=== PATIENT | female | born 1980 ===

== ENCOUNTER 2018-09-30 05:29 | Inpatient (IN) | payer MEDICAID, OTHER ==
[2018-09-30] MEDS ORDERED: XYLOCAINE 2% INFILTRATI ONE (06:01)
[2018-09-30] MEDS ORDERED: BRETHINE SUB-Q PRN (06:01)
[2018-09-30] MEDS ORDERED: SUBLIMAZE IV PRN (06:01)
--- NOTE | 2018-09-30 06:13 | History and Physical Report ---
History of Present Illness Date of examination: 09/30/18 Date of admission: 09/30/2018 Chief complaint: Contractions History of present illness: 38 year old presents to L&D in active labor. Patient denies leaking of fluid or vaginal bleeding. Patient received care at [facility] and records are available. LMP 12/26/17. EDC 10/02/18. significant for the following: grand multipara, advanced maternal age, + AFP (increased risk for Down Syndrome) with normal cf DNA, elevated 1 hour sugar test with normal 3 hour OGTT. labs are as follows: O+, antibody screen negative, rubella immune, HIV negative, RPR nonreactive, hepatitis B surface antigen negative, chlamydia negative, gonorrhea negative, quad screen posititive, cf DNA low risk, 1 hour sugar test 168 (normal 3 hr. OGTT), GBS negative. 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 denies: chlamydia, gonorrhea, hepatitis B, hepatitis C, HIV, syphilis, trichomonas Family/Genetic History: diabetes, hypertension Social history: , lives with family, full code. denies: smoking, alcohol abuse, prescription drug abuse, IV drug use - Obstetrical History Expected Date of Delivery: 10/02/18 Actual Gestation: 39 Week(s) 5 Day(s) : 6 Para: 5 Hx # Term Pregnancies: 5 Number of Pregnancies: 0 Spontaneous Abortions: 0 Induced : 0 Number of Living Children: 5 Medications and Allergies Allergies Allergy/AdvReac Type Severity Reaction Status Date / Time No Known Allergies Allergy Verified 09/30/18 06:40 Active Meds: Active Medications Ephedrine Sulfate (Ephedrine Sulfate) 10 mg IV Q2M PRN PRN Reason: Hypotension Oxytocin/Sodium Chloride (Pitocin/Ns 20 Unit/1000ml Drip) 20 units in 1,000 mls @ 125 mls/hr IV DIRECT MARIBELL Review of Systems All systems: negative (contractions) - Vital Signs Vital signs: Vital Signs Pulse BP 85 134/80 09/30/18 05:45 09/30/18 05:45 Temp Pulse Resp BP Pulse Ox 85 134/80 09/30/18 05:45 09/30/18 05:45 - Physical Exam Abdomen: Positive: normal appearance, soft. Negative: distention, tenderness, guarding, rigidity Genitourinary (Female): Positive: normal external genitalia, normal perenium. Negative: perineal/vulvar lesions (no vesicular lesions; small genital warts noted) Vagina: Positive: normal moisture Uterus: Positive: enlarged. Negative: tender Anus/Rectum: Positive: normal perianal skin Extremities: Positive: normal. Negative: tenderness - Obstetrical FHR: category 1 Uterine Contraction Monitor Mode: External Cervical Dilatation: 7 Cervical Effacement Percentage: 100 station: -2 Uterine Contraction Pattern: Regular Uterine Contraction Intensity: Moderate Results Result Diagrams: 09/30/18 06:00 All other labs normal. Assessment and Plan A: at 39 weeks, 5 days gestation. Active labor. GBS negative. Grand multipara. P: Admit. Continuous EFM. Anticipate vaginal .
[2018-09-30 06:47] LABS: Hematocrit 39.8 % (30.3-42.9); Hemoglobin 13.4 gm/dl (10.1-14.3); Mean Corpuscular HGB Conc 34 % (30-34); Mean Corpuscular Volume 92 fl (79-97); Platelet Count 230 K/mm3 (140-440); Red Blood Count 4.33 M/mm3 (3.65-5.03); Red Cell Distribution Width 13.5 % (13.2-15.2)
[2018-09-30] MEDS ORDERED: LACTATED RINGERS 1,000 ML IV SCH (07:00)
[2018-09-30] MEDS ORDERED: MARCAINE 0.25% INFILTRATI ONE (07:21)
[2018-09-30] MEDS ORDERED: NARCAN 2 MG/2 ML IV PRN (07:39)
--- NOTE | 2018-09-30 07:39 | Anesthesia Consultation ---
Anesthesia Consult and Med Hx Date of service: 09/30/18 - Airway Anesthetic Teeth Evaluation: Good ROM Head & Neck: Adequate Mental/Hyoid Distance: Adequate Mallampati Class: Class II Intubation Access Assessment: Good - Pulmonary Exam CTA: Yes - Cardiac Exam Cardiac Exam: RRR - Pre-Operative Health Status ASA Pre-Surgery Classification: ASA2 Proposed Anesthetic Plan: Epidural - Pulmonary Hx Asthma: No COPD: No Hx Pneumonia: No - Endocrine Hx End Stage Renal Disease: No - Hematic Hx Anemia: No - Other Systems Hx Alcohol Use: No
[2018-09-30] MEDS ORDERED: fentaNYL-BUPIV 2 MCG/ML-0.125% 200 MCG/100 ML BAG EPIDURAL SCH (08:00)
[2018-09-30] MEDS ORDERED: PITOCIN IV ONE (08:43)
[2018-09-30] MEDS ORDERED: NS IV ONE (08:43)
[2018-09-30] MEDS ORDERED: PITOCin/NS 30 UNIT/500ML 30 UNITS/500 ML BAG IV SCH (09:00)
[2018-09-30] MEDS: PITOCin/NS 20 UNIT/1000ML DRIP 20 UNITS/1,000 ML BAG IV SCH ×2 (10:20→11:26)
[2018-09-30] MEDS ORDERED: TUCKS PAD TP PRN (10:30)
[2018-09-30] MEDS ORDERED: NORCO 5/325 PO PRN (10:30)
[2018-09-30] MEDS ORDERED: LANSINOH TP PRN (10:30)
[2018-09-30] MEDS ORDERED: DULCOLAX PR PRN (10:30)
[2018-09-30] MEDS ORDERED: BENADRYL PO PRN (10:30)
--- NOTE | 2018-09-30 10:37 | Procedure Note ---
OB Delivery Note - Delivery Date of Delivery: 09/30/18 Surgeon: CIRO MENON Estimated blood loss: 200cc - Vaginal Delivery presentation: vertex Delivery position: OA Intrapartum events: shoulder dystocia Delivery induction: none Delivery monitor: external FHT, external uterine Route of delivery: Delivery placenta: spontaneous Delivery cord: 3 umbilical vessels Episiotomy: none Delivery laceration: none Anesthesia: epidural Delivery comments: Spontaneous vaginal delivery at 10:16 of liveborn female infant weighing 8 lb. 7 oz. over intact perineum with apgars of 7/9. Left anterior shoulder dystocia, resolved with Roxana maneuver, repositioning of shoulders, and good suprapubic pressure. Posterior shoulder was delivered first. Shoulder cord, reduced as baby's body delivered. Thin meconium amniotic fluid. 3 vessel cord double clamped and cut and baby taken immediately to radiant warmer at where NICU team was present for suctioning. Spontaneous cry and respirations. Cord blood obtained. Spontaneous delivery of intact placenta and membranes. EBL 200 cc. Pitocin to IV fluids after delivery of placenta. Fundus firm and midline. Vaginal sweep negative. No lacerations noted. Mother and baby stable in birthing room. Baby moving all extremities well.
[2018-09-30] MEDS ORDERED: SODIUM CHLORIDE FLUSH SYRINGE 10 ML IV NR (11:00)
--- NOTE | 2018-09-30 11:10 | Post Anesthesia Evaluation ---
- Post Anesthesia Evaluation Patient Participated: Yes Airway Patent: Yes Stable Respiratory Function: Yes Nausea/Vomiting: No Temp > 96.8F: Yes Pain Manageable: Yes Adequeate Hydration: Yes Anesthesia Complications: No Block Receding Appropriately: Yes Patient on Ventilator: No
[2018-09-30] MEDS: IBUPROFEN PO SCH ×2 (12:44→17:30)
[2018-09-30] MEDS ORDERED: MILK OF MAGNESIA PO PRN (22:00)
[2018-09-30 23:35] LABS: Hematocrit 35.4 % (30.3-42.9)
[2018-10-01] MEDS: IBUPROFEN PO SCH ×4 (00:30→20:41)
--- NOTE | 2018-10-01 11:09 | Progress Note ---
Assessment and Plan A: day 1 S/P spontaneous vaginal delivery. P: Continue current management. Encouraged patient to ambulate. Subjective - Subjective Date of service: 10/01/18 Principal diagnosis: day 1 S/P spontaneous vaginal delivery Interval history: day 1 S/P spontaneous vaginal delivery. Doing well. Patient reports small amount of lochia. Voiding without difficulty, ambulating well, passing gas, tolerating a regular diet without nausea or vomiting. Patient denies headache, chest pain, cough, shortness of breath, abdominal pain, or heavy vaginal bleeding. Patient reports: appetite normal, voiding normally, pain well controlled, flatus, ambulating normally, no dizzy ambulation, no nauseated : doing well Objective - Vital Signs Latest vital signs: Vital Signs Temp Pulse Resp BP BP Pulse Ox 10/01/18 08:19 98.0 F 76 20 113/70 99 10/01/18 00:11 98.3 F 80 16 111/60 97 09/30/18 21:30 97.8 F 75 18 117/71 09/30/18 21:21 20 09/30/18 16:47 97.6 F 79 18 104/59 09/30/18 12:19 98.4 F 87 18 132/75 99 09/30/18 11:55 64 130/66 09/30/18 11:25 86 115/64 09/30/18 11:10 96 H 112/77 Intake and Output 09/30/18 10/01/18 10/01/18 23:59 07:59 15:59 Intake Total 720 120 Output Total 250 Balance 720 -130 Intake: Oral 360 Intake, Free Water 360 120 Output: Urine 250 Void 250 Other: Total, Intake Amount 360 Total, Output Amount 250 # Voids Void 1 - Exam Cardiovascular: Present: Regular rate, Normal S1, Normal S2 Lungs: Present: Clear to auscultation Abdomen: Present: normal appearance, soft. Absent: distention, tenderness, guarding, rigidity Uterus: Present: normal, firm, fundal height below umbilicus. Absent: bogginess, tenderness Extremities: Present: normal. Absent: tenderness, edema
[2018-10-02] MEDS: IBUPROFEN PO SCH ×2 (06:00)
--- NOTE | 2018-10-02 10:42 | Progress Note ---
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 Patient reports: appetite normal, voiding normally, pain well controlled, ambulating normally, no dizzy ambulation [place]: doing well, nursing well Objective - Vital Signs Latest vital signs: Vital Signs Temp Pulse Resp BP BP Pulse Ox 10/02/18 07:42 97.5 F L 70 18 105/59 10/02/18 01:15 97.8 F 71 20 103/54 98 10/01/18 16:13 97.9 F 100 H 18 115/73 98 Intake and Output 10/01/18 10/02/18 10/02/18 23:59 07:59 15:59 Intake Total 720 720 120 Output Total 450 Balance 270 720 120 Intake: Oral 360 720 120 Intake, Free Water 360 Output: Urine 450 Void 450 Other: Total, Intake Amount 120 480 120 Total, Output Amount 450 # Voids Void 1 1 # Bowel Movements 1 - Exam Cardiovascular: Present: Regular rate Lungs: Present: Clear to auscultation Abdomen: Present: normal appearance, soft Vulva: both: normal Uterus: Present: normal, firm, fundal height at umbilicus Extremities: Present: normal Comments: scant lochia
--- NOTE | 2018-10-02 10:46 | Discharge Summary ---
Providers - Providers Date of Admission: 09/30/18 06:40 Date of discharge: 10/02/18 Attending physician: YUNIEL PETERSON MD Primary care physician: YUNIEL PETERSON MD Hospitalization Reason for admission: active labor, IUP at term Delivery: Episiotomy: none Laceration: none Other procedures: none Discharge diagnosis: IUP at term delivered Sarah Ann baby: female Hospital course: Uncomplicated Condition at discharge: Stable Disposition: DC-01 TO HOME OR SELFCARE - Discharge Diagnoses (1) Status post normal vaginal delivery Status: Acute Plan - Provider Discharge Summary Activity: routine, no sex for 6 weeks, no heavy lifting 4 weeks, no strenuous exercise Diet: routine Instructions: routine Additional instructions: [] Smoking cessation referral if applicable(refer to patient education folder for contact #) [] Refer to [facility] Booklet Call your doctor immediately for: * Fever > 100.5 * Heavy vaginal bleeding ( >1 pad per hour) * Severe persistent headache * Shortness of breath * Reddened, hot, painful area to leg or breast * Drainage or odor from incision. * Keep incision clean and dry at all times and follow doctor's instructions regarding bathing/showering - Follow up plan Follow up: YUNIEL PETERSON MD [Primary Care Provider] - 6 Weeks (Follow-up at [facility] as needed or in 6 weeks for exam)
[2018-10-02 15:46] VITALS: BP 120/71
== END 2018-10-02 14:50 | disposition home or self-care (01) | DRG 807 ==
LOC: TRG 05:29 → LD 06:40 → TRG 06:40 → OB 12:37
PROVIDERS: ADMIT Obstetrics & Gynecology; ATTEND Obstetrics & Gynecology
PROC: 10E0XZZ Delivery of Products of Conception, External Approach (ICD-10-PCS; principal; 2018-09-30)
PROC: 3E0R3BZ Introduction of Anesthetic Agent into Spinal Canal, Percutaneous Approach (ICD-10-PCS; 2018-09-30)
PROC: 00HU33Z Insertion of Infusion Device into Spinal Canal, Percutaneous Approach (ICD-10-PCS; 2018-09-30)
DX: O66.0 Obstructed labor due to shoulder dystocia (principal); Z37.0 Single live birth; Z3A.39 39 weeks gestation of pregnancy; Z82.49 Family history of ischemic heart disease and other diseases of the circulatory system; Z83.3 Family history of diabetes mellitus
CPT/HCPCS: 36415; 85014; 85018; 85027; 86592; 86850; 86900; 86901; G0378; A6250; J2590; J3010; J7120